=== PATIENT | male | born 1985 | race Caucasian/White ===

== ENCOUNTER 2018-01-21 22:14 | Emergency (ER) | payer OTHER ==
[~2018-01-21] VITALS: Ht 170.2 cm; Wt 63.3 kg
[~2018-01-21 22:14] MED LIST: ATIVAN1 MG PO; BUSPAR30 MG PO; IBUPROFEN 800800 MG PO; LEVOTHYROXINE 0.1 MG PO; OMEPRAZOLE; WELLBUTRIN SR150 MG PO
[2018-01-21] MEDS ORDERED: LEXAPRO20 MG PO (22:26)
[2018-01-21] MEDS ORDERED: XANAX1 MG PO (22:26)
[2018-01-21] MEDS ORDERED: WP THYROID PO (22:27)
[2018-01-21] MEDS ORDERED: NALTREXONE HCL50 MG PO (22:28)
[2018-01-21 23:00] LABS: ABSOLUTE LYMPHOCYTES 2.1 thou/uL (0.8-5.3); ABSOLUTE MONOCYTES 0.5 thou/uL (0.0-1.2); ABSOLUTE NEUTROPHILS 5.2 thou/uL (1.6-8.1); BASOPHILS 0.3 %; EOSINOPHILS 0.3 %; HEMATOCRIT 42.7 % (42.0-52.0); HEMOGLOBIN 14.5 gm/dL (14.0-18.0); LYMPHOCYTES 26.6 %; MCH 30.3 pg (26.0-34.0); MPV 8.6 fl. (7.2-11.1); NUCLEATED RBCS 0 /100WBC; PLATELET COUNT* 186 thou/uL (150-400); POLYS 66.8 %; RBC 4.79 mil/uL (4.50-6.00); RDW-CV 13.6 % (10.5-14.5); WBC 7.7 thou/uL (4.0-11.0)
[2018-01-21 23:07] LABS: CALCIUM 8.7 mg/dL (8.5-10.1); CREATININE 1.2 mg/dL (0.6-1.3); POTASSIUM 3.6 mmol/L (3.5-5.1)
[2018-01-21 23:11] LABS: ALBUMIN 4.2 g/dL (3.4-5.0); TOTAL BILIRUBIN 0.4 mg/dL (<0.1-1.0)
[2018-01-21 23:11] LABS: URINE BILIRUBIN NEGATIVE (Negative); URINE BLOOD NEGATIVE (Negative); URINE CLARITY CLEAR; URINE COLOR YELLOW; URINE GLUCOSE-RANDOM NEGATIVE (Negative); URINE KETONES NEGATIVE (Negative); URINE LEUKOCYTES-REFLEX NEGATIVE (Negative); URINE NITRITE-REFLEX NEGATIVE (Negative); URINE PROTEIN NEGATIVE (Negative); URINE UROBILINOGEN 0.2 E.U./dl (0.2-1.0)
[2018-01-21 23:18] LABS: AMP/METHAMP Negative (Negative); BARBITURATES Negative (Negative); BENZODIAZEPINES POSITIVE (Negative); COCAINE Negative (Negative); METHADONE Negative (Negative); OPIATES Negative (Negative); PCP Negative (Negative); THC POSITIVE (Negative)
[2018-01-21 23:18] LABS: ALCOHOL < 10 mg/dL (<10); SALICYLATE < 2.8 mg/dL (2.8-20.0)
[2018-01-21 23:19] LABS: ACETAMINOPHEN < 2 ug/mL (10-30)
[2018-01-22 00:17] VITALS: BP 119/67
== END 2018-01-22 00:18 | disposition home or self-care (01) ==
LOC: M.ERS 22:14
PROVIDERS: Emergency Medicine Emergency Medical Services
DX: F41.9 Anxiety disorder, unspecified (principal); F12.10 Cannabis abuse, uncomplicated